=== PATIENT | male | born 1965 | race Caucasian/White ===

== ENCOUNTER 2020-12-06 11:26 | Emergency (ER) | payer MEDICAID, OTHER ==
[~2020-12-06] VITALS: Ht 182.9 cm; Wt 77.3 kg
[2020-12-06 11:31] VITALS: BP 117/83
[2020-12-06 12:37] LABS: ALANINE AMINOTRANSFERASE 37 U/L (12-78); ALBUMIN 2.2 G/DL (3.4-5.0); ALBUMIN/GLOBULIN RATIO 0.7 (1.1-1.5); ALKALINE PHOSPHATASE 91 IU/L (46-116); AMYLASE 29 U/L (25-115); ANION GAP 7 (8-16); ASPARTATE AMINO TRANSFERASE 40 U/L (10-37); BILIRUBIN,TOTAL 0.8 MG/DL (0.1-1.0); BLOOD UREA NITROGEN 11 MG/DL (7-18); BUN/CREATININE RATIO 23.9 (5.4-32.0); CHLORIDE 82 MMOL/L (99-107); CREATININE 0.46 MG/DL (0.60-1.10); GLUCOSE 101 MG/DL (70-104); LIPASE 61 U/L (73-393); SODIUM 122 MMOL/L (135-145); TOTAL CARBON DIOXIDE 33.1 MMOL/L (24-32); TOTAL PROTEIN 5.3 G/DL (6.4-8.2); eGFR > 90 ML/MIN
[2020-12-06 12:42] LABS: CALCIUM 7.1 MG/DL (8.5-10.1)
[2020-12-06 12:43] LABS: POTASSIUM 2.2 MMOL/L (3.5-5.1)
[2020-12-06] MEDS ORDERED: normal saline 1000ML IV soln IVB ONE (12:45)
[2020-12-06] MEDS ORDERED: potassium Cl 20 mEq SR tablet PO ONE (12:45)
[2020-12-06] MEDS ORDERED: magnesium 2GM in 50ml NS 50 ML IV SCH (12:45)
[2020-12-06] MEDS ORDERED: potassium Cl 10 mEq/100mL bag IV SCH (12:45)
[2020-12-06 12:56] LABS: MAGNESIUM 1.1 MG/DL (1.5-2.4)
[2020-12-06 12:59] LABS: BASOPHILS % (AUTO) 0.6 % (0-1); EOSINOPHILS % (AUTO) 0.3 % (0-6); LYMPHOCYTES # (AUTO) 1.6 X10'3 (1.1-4.8); LYMPHOCYTES % (AUTO) 20.6 % (21-51); MEAN PLATELET VOLUME 8.2 FL (7.4-10.4); MONOCYTES # (AUTO) 0.5 X10'3 (0-0.9); MONOCYTES % (AUTO) 6.4 % (2-12); NEUTROPHILS # (AUTO) 5.6 X10'3 (1.8-7.7); NEUTROPHILS % (AUTO) 72.1 % (42-75); PLATELET COUNT 239 X10'3 (140-440); RED CELL DISTRIBUTION WIDTH 13.3 % (11.5-14.5); WHITE BLOOD COUNT 7.7 X10'3 (4.5-11.0)
[2020-12-06] MEDS ORDERED: iohexol 300mg/ml 100ml inj. ONE (13:03)
[2020-12-06 13:05] LABS: PLATELET ESTIMATE NORMAL; TOTAL CELLS COUNTED 100
[2020-12-06 13:26] LABS: HEMATOCRIT 31.7 % (42.0-52.0); HEMOGLOBIN 11.3 g/dl (14.0-17.9); MEAN CORPUSCULAR HEMOGLOBIN 37.9 PG (27.0-31.0); MEAN CORPUSCULAR HGB CONC 35.6 g/dL (33.0-36.5); MEAN CORPUSCULAR VOLUME 106.5 FL (78-98); RED BLOOD COUNT 2.98 X10'6 (4.70-6.10)
[2020-12-06 14:36] LABS: CLARITY,URINE CLEAR (Clear); COLOR,URINE YELLOW (Yellow); GLUCOSE, URINE NEGATIVE (Neg); KETONES,URINE 15 mg/dl (Neg); LEUKOCYTE ESTERASE ,URINE NEGATIVE (Neg); NITRITES, URINE NEGATIVE (Neg); OCCULT BLOOD,URINE NEGATIVE (Neg); PH,URINE 6.5 (4.8-8.0); PROTEIN,URINE TRACE mg/dl (Neg)
[2020-12-06 14:39] LABS: UA COLLECTION TYPE URINAL
[2020-12-06 14:41] LABS: BACTERIA,URINE NONE SEEN /HPF (Neg); HYALINE CASTS 0-3 /LPF (NEGATIVE); MUCUS STRANDS FEW /LPF (Neg); RBC,URINE NONE SEEN /HPF (0-2); SQUAMOUS EPITHELIAL CELL,UR NONE SEEN /LPF (FEW); WBC,URINE 0-4 /HPF (0-4)
[2020-12-06 15:09] LABS: C DIFF SPECIMEN=DIARRHEA? ACCEPTABLE
[2020-12-06 15:11] LABS: C DIFF ANTIGEN SEE COMMENTS (NEGATIVE); C DIFFICILE TOXINS A&B NEGATIVE (Neg)
[2020-12-06 16:25] LABS: C DIFF TOXIN (LAMP) NEGATIVE (NEG)
[2020-12-10 12:34] LABS: OCCULT BLOOD STOOL NEGATIVE (Neg)
== END 2020-12-06 15:11 | disposition left against medical advice (07) ==
LOC: ER 11:26
DX: C34.90 Malignant neoplasm of unspecified part of unspecified bronchus or lung (principal); E87.6 Hypokalemia; R62.7 Adult failure to thrive; D64.9 Anemia, unspecified; E87.1 Hypo-osmolality and hyponatremia; K52.9 Noninfective gastroenteritis and colitis, unspecified; R31.9 Hematuria, unspecified; F17.200 Nicotine dependence, unspecified, uncomplicated; Z86.69 Personal history of other diseases of the nervous system and sense organs
CPT/HCPCS: 36415; 71260; 74177; 80053; 81001; 82150; 83690; 83735; 85007; 85025; 87045; 87046; 87324; 87449; 87493; 89055; 96365; 96368; 99285; J3475; J3480; J7030; Q9967; 82272